=== PATIENT | male | born 1995 | race Caucasian/White ===

== ENCOUNTER 2019-10-05 00:15 | Emergency (ER) | payer MEDICAID, OTHER ==
[~2019-10-05] VITALS: Ht 167.6 cm; Wt 130.0 kg
[2019-10-05] MEDS ORDERED: BACITRACIN ZINC OINT UDPKT TOP ONE (02:30)
[2019-10-05] MEDS ORDERED: LIDOCAINE 1%/EPI 1:100,000 10 ML VIAL IJ ONE (02:30)
[2019-10-05] MEDS ORDERED: TETANUS, DIPHTHERIA, PERTUSSIS VAC/PF 0.5ML (>7YR OLD) IM ONE (02:30)
[2019-10-05] MEDS ORDERED: KETOROLAC 60MG/2ML VIAL IM STA (02:30)
[2019-10-05] MEDS ORDERED: LIDOCAINE HCL/EPINEPHRINE 1%-EPI 1:100,000 20 ML VIAL INFIL NR (03:00)
[2019-10-05 04:30] VITALS: BP 133/74
== END 2019-10-05 05:00 | disposition home or self-care (01) ==
LOC: ER 00:15
DX: T63.301A Toxic effect of unspecified spider venom, accidental (unintentional), initial encounter (principal); L02.415 Cutaneous abscess of right lower limb; M25.561 Pain in right knee; Y92.032 Bedroom in apartment as the place of occurrence of the external cause; Z23 Encounter for immunization
CPT/HCPCS: 90471; 90715; 96372; 99283; J1885; J3490; Z7610

== ENCOUNTER 2019-10-07 21:41 | Emergency (ER) | payer MEDICAID ==
[~2019-10-07] VITALS: Ht 180.3 cm; Wt 130.3 kg
[2019-10-07 22:58] VITALS: BP 117/66
== END 2019-10-07 22:55 | disposition home or self-care (01) ==
LOC: ER 21:41
DX: L02.415 Cutaneous abscess of right lower limb (principal); F17.200 Nicotine dependence, unspecified, uncomplicated; F12.10 Cannabis abuse, uncomplicated
CPT/HCPCS: 10060; 99283; Z7610